=== PATIENT | female | born 1940 | race Caucasian/White ===

== ENCOUNTER 2019-07-26 10:40 | Inpatient (IN) | payer BC ==
--- NOTE | 2019-07-26 10:51 | PDOC ---
History of Present Illness - General Chief Complaint: Shortness of Breath Stated Complaint: SOB Time Seen by Provider: 07/26/19 10:51 - History of Present Illness Initial Comments: 07/26/19 11:29 pt presents to the ED complaining of a one week history of shortness of breath. Patient was seen in urgent care at the beginning of the week, had CXR and was diagnosed with PNA. Sent home with prednisone and zithromax. Presents today because symptoms are not improving. States that she feels SOB with HOOPER and orthopnea and continues to have productive cough. Denies fever, nausea or vomiting. Has completed both the z pack and the course of prednisone. Past History - Past Medical History Allergies/Adverse Reactions: Allergies Allergy/AdvReac Type Severity Reaction Status Date / Time erythromycin lactobionate Allergy Verified 07/26/19 10:41 [From Erythrocin] iodine Allergy Verified 07/26/19 10:41 ramipril [From Altace] Allergy Verified 07/26/19 10:41 Home Medications: Ambulatory Orders Diltiazem HCl [Cardizem LA] 240 mg PO DAILY 10/27/14 Furosemide [Lasix -] 40 mg PO DAILY 10/27/14 Hydralazine HCl 50 mg PO TID 10/27/14 Lansoprazole [Prevacid -] 30 mg PO DAILY 10/27/14 Levothyroxine [Synthroid -] 150 mcg PO DAILY 10/27/14 Rosuvastatin Calcium [Crestor] 10 mg PO TID 10/27/14 Albuterol 0.083% Nebulizer Shala [Ventolin 0.083% Nebulizer Soln -] 1 neb NEB Q4H PRN #0 vial 10/31/14 Roflumilast [Daliresp] 500 mcg PO DAILY #60 tablet 10/31/14 predniSONE [Deltasone -] 40 mg PO DAILY tablet 10/31/14 Aspirin [ASA -] 81 mg PO DAILY 07/26/19 Cholecalciferol (Vitamin D3) [Vitamin D3 -] 400 unit PO DAILY 07/26/19 Promethazine HCl [Phenergan Plain 6.25 MG/5 ML -] 6.25 mg PO PRN PRN 07/26/19 Telmisartan/Hydrochlorothiazid [Telmisartan-Hctz 80-12.5 mg Tb] 1 each PO DAILY 07/26/19 Asthma: Yes CHF: Yes HTN: Yes Hypercholesterolemia: Yes Thyroid Disease: Yes (hypothyroid) - Psycho Social/Smoking Cessation Hx Smoking History: Former smoker Review of Systems - Review of Systems Able to Perform ROS?: Yes Is the patient limited Maori proficient: No Constitutional: No: Symptoms Reported, See HPI, Chills, Diaphoresis, Fever, Loss of Appetite, Malaise, Night Sweats, Weakness, Weight Stable, Unintentional Wgt. Loss, Unexplained wgt Loss, Other HEENTM: No: Symptoms Reported, See HPI, Eye Pain, Blurred Vision, Tearing, Recent change in vision, Double Vision, Cataracts, Ear Pain, Ocular Prothesis, Ear Discharge, Nose Pain, Nose Congestion, Tinnitus, Nose Bleeding, Hearing Loss , Throat Pain, Throat Swelling, Mouth Pain, Dental Problems, Difficulty Swallowing, Mouth Swelling, Other Respiratory: Yes: Cough, Orthopnea, Shortness of Breath, SOB with Exertion, Wheezing, Productive cough Cardiac (ROS): No: Symptoms Reported, See HPI, Chest Pain, Edema, Irregular Heart Rate, Lightheadedness, Palpitations, Syncope, Chest Tightness, Other ABD/GI: No: Symptoms Reported, See HPI, Abdominal Distended, Abd. Pain w/ defecation, Blood Streaked Bowels, Constipated, Diarrhea, Difficulty Swallowing , Nausea, Poor Appetite, Poor Fluid Intake, Rectal Bleeding, Vomiting, Indigestion, Abdominal cramping, Tarry Stools, Other : No: Symptoms Reported, See HPI, Burning, Dysuria, Discharge, Frequency, Flank Pain, Hematuria, Incontinence, Pain, Urgency, Testicular Mass, Testicular Swelling, Lesions, Testicular Pain, Other Musculoskeletal: No: Symptoms Reported, See HPI, Back Pain, Gout, Joint Pain, Joint Swelling, Muscle Pain, Muscle Weakness, Neck Pain, Joint Stiffness, Other Integumentary: No: Symptoms Reported, See HPI, Bruising, Change in Color, Change in Hair/Nails, Dryness, Erythema, Flushing, Lesions, Lumps, Pallor, Pruritus, Rash, Sweating, Other Neurological: No: Symptoms reported, See HPI, Headache, Numbness, Paresthesia, Pre-Existing Deficit, Seizure, Tingling, Tremors, Weakness, Unsteady Gait, Ataxia, Dizziness, Other All Other Systems: Reviewed and Negative *Physical Exam - Physical Exam 07/26/19 11:38 gen: alert, NAD HEENT: normocephalic, atraumatic CV: rrr no m/r/g Pulm: + diffuse wheezing with good air entry b/l Abd: soft, non tender, non distended without guarding or rebound ext: no edema ED Treatment Course - LABORATORY CBC & Chemistry Diagram: 07/26/19 12:01 07/26/19 12:01 Medical Decision Making - Medical Decision Making 07/26/19 11:39 Pt presents to the ED complaining of wheezing, shortness of breath and productive cough after completing a course of prednisone and zithromax. Appears mildly short of breath in the ED, with diffuse wheezing. Differential includes COPD exacerbation, PNA, less likely CHF. EKG shows no evidence of ischemia. Will check labs and CXR, treat with nebs and steroids and reassess. Discharge - Discharge Information Problems reviewed: Yes Clinical Impression/Diagnosis: COPD exacerbation Condition: Good - Admission Yes - Follow up/Referral - Patient Discharge Instructions - Post Discharge Activity
[2019-07-26] MEDS ORDERED: predniSONE 20 MG TABLET (UD) PO ONE (11:16)
[2019-07-26] MEDS ORDERED: predniSONE 20 MG TABLET (UD) ONE (11:31)
[2019-07-26] MEDS ORDERED: ALBUTEROL SO4 2.5/IPRATROPIUM 0.5 INH SOL 3 ML VIAL.NEB. NEB ONE ×2 (11:31→11:42)
[2019-07-26] MEDS: ALBUTEROL SO4 2.5/IPRATROPIUM 0.5 INH SOL 3 ML VIAL.NEB. NEB SCH ×3 (11:35→12:06)
[2019-07-26 12:15] LABS: HEMATOCRIT 37.8 % (32.4-45.2); HEMOGLOBIN 12.7 GM/dl (10.7-15.3); RDW 13.1 % (11.6-15.6)
[2019-07-26 12:18] LABS: MCH 29.5 pg (25.7-33.7); MCHC 33.7 g/dl (32.0-36.0); MEAN CELL VOLUME 87.6 fl (80-96); MEAN PLT VOLUME 9.3 fl (7.5-11.1); PLATELET COUNT 282 K/MM3 (134-434); RBC 4.32 M/mm3 (3.60-5.2); WHITE BLOOD COUNT 11.3 K/mm3 (4.0-10.8)
[2019-07-26 12:24] LABS: ALBUMIN 3.7 g/dl (3.4-5.0); BILIRUBIN,TOTAL 0.5 mg/dl (0.2-1); CALCIUM 8.8 mg/dl (8.5-10); CREATININE 1.1 mg/dl (0.55-1.3); POTASSIUM 3.2 mmol/L (3.5-5.1); TOT PROT 7.4 g/dl (6.4-8.2)
[2019-07-26 13:08] LABS: PLATELET ESTIMATE ADEQUATE
--- NOTE | 2019-07-26 14:35 | EKG ---
Test Reason : Blood Pressure : / mmHG Vent. Rate : 073 BPM Atrial Rate : 073 BPM P-R Int : 134 ms QRS Dur : 094 ms QT Int : 398 ms P-R-T Axes : 049 003 010 degrees QTc Int : 438 ms NORMAL SINUS RHYTHM POSSIBLE LEFT ATRIAL ENLARGEMENT BORDERLINE ECG Confirmed by MD OC, ILAN ([id number]) on 07/26/2019 2:35:08 PM Referred By: ROMULO DE LA PAZ Confirmed By:ILAN RENAE MD
--- NOTE | 2019-07-26 15:55 | HP ---
CHIEF COMPLAINT: Shortness of breath HISTORY OF PRESENT ILLNESS: 79 year-old female with a PMH significant for HTN, HLD, CHF, COPD, and hypothyroidism. Presented to the ED complaining of a one week history of shortness of breath. 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 Last Sunday she went to work. 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 Patient immediately felt tightness in her chest. A few days later she went to urgent care, had a CXR, and was told she had pneumonia. She was treated with a course of azithromycin and prednisone. She did not really improve which prompted her to come to the ED. She feels SOB, has HOOPER, orthopnea , and has a productive cough. She denies fever, sweats, chills. ER course was notable for: (1) WBC 11.3 (2) K3.2 (3) CXR: no acute findings Recent Travel: No PAST MEDICAL HISTORY: Hypertension Hyperlipidemia CHF COPD Hypothyroidism PAST SURGICAL HISTORY: Social History: lives with Smoking: former Alcohol: occasional Drugs: no Allergies erythromycin lactobionate [From Erythrocin] Allergy (Verified 07/26/19 10:41) iodine Allergy (Verified 07/26/19 10:41) ramipril [From Altace] Allergy (Verified 07/26/19 10:41) HOME MEDICATIONS: Home Medications Medication Instructions Recorded Diltiazem HCl [Cardizem LA] 240 mg PO DAILY 10/27/14 Furosemide [Lasix -] 40 mg PO DAILY 10/27/14 Hydralazine HCl 50 mg PO TID 10/27/14 Lansoprazole [Prevacid -] 30 mg PO DAILY 10/27/14 Levothyroxine [Synthroid -] 150 mcg PO DAILY 10/27/14 Rosuvastatin Calcium [Crestor] 10 mg PO TID 10/27/14 Albuterol 0.083% Nebulizer Shala 1 neb NEB Q4H PRN #0 vial 10/31/14 [Ventolin 0.083% Nebulizer Soln -] Roflumilast [Daliresp] 500 mcg PO DAILY #60 tablet 10/31/14 predniSONE [Deltasone -] 40 mg PO DAILY tablet 10/31/14 Aspirin [ASA -] 81 mg PO DAILY 07/26/19 Cholecalciferol (Vitamin D3) 400 unit PO DAILY 07/26/19 [Vitamin D3 -] Promethazine HCl [Phenergan Plain 6.25 mg PO PRN PRN 07/26/19 6.25 MG/5 ML -] Telmisartan/Hydrochlorothiazid 1 each PO DAILY 07/26/19 [Telmisartan-Hctz 80-12.5 mg Tb] REVIEW OF SYSTEMS CONSTITUTIONAL: Absent: fever, chills, diaphoresis, generalized weakness, malaise, loss of appetite, weight change HEENT: Absent: rhinorrhea, nasal congestion, throat pain, throat swelling, difficulty swallowing, mouth swelling, ear pain, eye pain, visual changes CARDIOVASCULAR: Absent: chest pain, syncope, palpitations, irregular heart rate, lightheadedness , peripheral edema RESPIRATORY: +SOB, HOOPER, cough, orthopnea Absent: wheezing, stridor, hemoptysis GASTROINTESTINAL: Absent: abdominal pain, abdominal distension, nausea, vomiting, diarrhea, constipation, melena, hematochezia GENITOURINARY: Absent: dysuria, frequency, urgency, hesitancy, hematuria, flank pain, genital pain MUSCULOSKELETAL: Absent: myalgia, arthralgia, joint swelling, back pain, neck pain SKIN: Absent: rash, itching, pallor HEMATOLOGIC/IMMUNOLOGIC: Absent: easy bleeding, easy bruising, lymphadenopathy, frequent infections ENDOCRINE: Absent: unexplained weight gain, unexplained weight loss, heat intolerance, cold intolerance NEUROLOGIC: Absent: headache, focal weakness or paresthesias, dizziness, unsteady gait, seizure, mental status changes, bladder or bowel incontinence PSYCHIATRIC: Absent: anxiety, depression, suicidal or homicidal ideation, hallucinations. PHYSICAL EXAMINATION Vital Signs - 24 hr 07/26/19 07/26/19 10:40 14:53 Temperature 98.5 F Pulse Rate 77 Pulse Rate [ 75 Right] Respiratory 20 20 Rate Blood Pressure 148/72 Blood Pressure 140/52 L [Left Arm] O2 Sat by Pulse 92 L 92 L Oximetry (%) GENERAL: Awake, alert, and fully oriented, in no acute distress. HEAD: Normal with no signs of trauma. EYES: Pupils equal, round and reactive to light, extraocular movements intact, sclera anicteric, conjunctiva clear. No lid lag. LUNGS: Diffuse wheezing HEART: Regular rate and rhythm, normal S1 and S2 ABDOMEN: Soft, nontender, not distended UPPER EXTREMITIES: 2+ pulses, warm, well-perfused. No cyanosis. No clubbing. No peripheral edema. LOWER EXTREMITIES: 2+ pulses, warm, well-perfused. No calf tenderness. No peripheral edema. NEUROLOGICAL: Cranial nerves II-XII intact. Normal speech. Laboratory Results - last 24 hr 07/26/19 07/26/19 07/26/19 12:01 12:01 12:01 WBC 11.3 H RBC 4.32 Hgb 12.7 Hct 37.8 MCV 87.6 MCH 29.5 MCHC 33.7 RDW 13.1 Plt Count 282 MPV 9.3 Absolute Neuts (auto) 7.5 Neutrophils % No Result Required. Neutrophils % (Manual) 65.0 Lymphocytes % No Result Required. Lymphocytes % (Manual) 24.0 Monocytes % (Manual) 11 H Platelet Estimate Adequate Sodium 134 L Potassium 3.2 L Chloride 101 Carbon Dioxide 25 Anion Gap 8 BUN 29.0 H Creatinine 1.1 Est GFR (CKD-EPI)AfAm 56.08 Est GFR (CKD-EPI)NonAf 48.39 Random Glucose 102 Calcium 8.8 Total Bilirubin 0.5 AST 22 ALT 18 Alkaline Phosphatase 90 Creatine Kinase 102 Troponin I < 0.03 Total Protein 7.4 Albumin 3.7 ASSESSMENT/PLAN: 79 year-old female with a PMH significant for HTN, HLD, CHF, COPD, and hypothyroidism. Admitted for COPD exacerbation and likely pneumonitis. Acute exacerbation of chronic COPD Pneumonitis --acute onset of symptoms following chemical exposure at work, no significant improvement of symptoms after completing course of antibiotics --start PO prednisone 60mg daily --duonebs scheduled and PRN --continue roflumilast Hypertension --continue valsartan and HCTZ Hyperlipidemia --continue Crestor Diastolic heart failure --2014 Echo: EF normal, impaired LV relaxation --appears euvolemic --continue cardizem, ASA, Lasix Hypothyroidism --continue levothyroxine FEN Fluids: PO intake adequate Electrolytes: replete as indicated Nutrition: low sodium DVT prophylaxis: subq heparin Physical therapy Dispo: continues to require inpatient care. Full code. Visit type - Emergency Visit Emergency Visit: Yes ED Registration Date: 07/26/19 Care time: The patient presented to the Emergency Department on the above date and was hospitalized for further evaluation of their emergent condition. - New Patient This patient is new to me today: Yes Date on this admission: 08/04/19 - Critical Care Critical Care patient: No
[2019-07-26 16:05] VITALS: BMI 43.7
[2019-07-26] MEDS: hydrALAZINE HCL 50 MG TABLET (FP) PO SCH ×2 (17:18→21:53)
[2019-07-26] MEDS: HEPARIN NA (PORCINE) 5,000 UNITS/ML 1ML VIAL SQ SCH (17:18)
[2019-07-26] MEDS: ROFLUMILAST 500 MCG TABLET PO SCH (17:21)
[2019-07-26] MEDS: POTASSIUM CHLORIDE TABS 20 MEQ TABLET.ER (FP) PO SCH (18:40)
[2019-07-27] MEDS: POTASSIUM CHLORIDE TABS 20 MEQ TABLET.ER (FP) PO SCH (00:45)
[2019-07-27] MEDS: HEPARIN NA (PORCINE) 5,000 UNITS/ML 1ML VIAL SQ SCH ×3 (02:42→17:00)
[2019-07-27] MEDS: hydrALAZINE HCL 50 MG TABLET (FP) PO SCH ×3 (06:32→21:02)
[2019-07-27] MEDS: LEVOTHYROXINE NA 150 MCG TABLET PO SCH (06:32)
[2019-07-27] MEDS ORDERED: LEVOTHYROXINE NA 125 MCG TABLET (FP) PO SCH (07:00)
[2019-07-27 08:59] LABS: BASO % 0.2 % (0-2.0); HEMATOCRIT 34.5 % (32.4-45.2); HEMOGLOBIN 11.6 GM/dl (10.7-15.3); LYMPH % 17.8 % (8-40); MCH 29.9 pg (25.7-33.7); MCHC 33.8 g/dl (32.0-36.0); MEAN CELL VOLUME 88.5 fl (80-96); MEAN PLT VOLUME 9.8 fl (7.5-11.1); MONO % 8.4 % (3.8-10.2); NEUT % 73.6 % (42.8-82.8); PLATELET COUNT 223 K/MM3 (134-434); RDW 13.4 % (11.6-15.6); WHITE BLOOD COUNT 9.5 K/mm3 (4.0-10.8)
[2019-07-27 09:16] LABS: ALBUMIN 3.2 g/dl (3.4-5.0); BILIRUBIN,TOTAL 0.4 mg/dl (0.2-1); CALCIUM 8.8 mg/dl (8.5-10); TOT PROT 6.5 g/dl (6.4-8.2)
[2019-07-27] MEDS ORDERED: PATIENT'S OWN MEDICATION (NON-FORMULARY) (Telmisartan/Hydrochlorothiazid [Telmisartan-Hctz PO SCH (10:00)
[2019-07-27] MEDS: VALSARTAN 160 MG TABLET (UD) PO SCH (10:00)
[2019-07-27] MEDS: ROFLUMILAST 500 MCG TABLET PO SCH (10:03)
[2019-07-27] MEDS: FUROSEMIDE 40 MG TABLET (FP) PO SCH (10:03)
[2019-07-27] MEDS: PANTOPRAZOLE 40 MG TABLET PO SCH (10:03)
[2019-07-27] MEDS: predniSONE 20 MG TABLET (UD) PO SCH (10:04)
[2019-07-27] MEDS: ASPIRIN 81 MG CHEWABLE TABLETS PO SCH (10:04)
[2019-07-27] MEDS: HYDROCHLOROTHIAZIDE 12.5 MG CAPSULE (FP) PO SCH (10:08)
--- NOTE | 2019-07-27 10:55 | PN ---
Physical Exam: SUBJECTIVE: Patient seen and examined at bedside. Feels breathing is a little better. OBJECTIVE: Vital Signs Period Temp Pulse Resp BP Sys/Laws Pulse Ox Last 24 Hr 97.6 F-98.4 F 69-82 18-20 131-150/43-70 92-95 GENERAL: Awake, alert, and fully oriented, in no acute distress. HEAD: Normal with no signs of trauma. EYES: Pupils equal, round and reactive to light, extraocular movements intact, sclera anicteric, conjunctiva clear. No lid lag. LUNGS: Scattered wheezing, improved HEART: Regular rate and rhythm, normal S1 and S2 ABDOMEN: Soft, nontender, not distended UPPER EXTREMITIES: 2+ pulses, warm, well-perfused. No cyanosis. No clubbing. No peripheral edema. LOWER EXTREMITIES: 2+ pulses, warm, well-perfused. No calf tenderness. No peripheral edema. NEUROLOGICAL: Cranial nerves II-XII intact. Normal speech. Laboratory Results - last 24 hr 07/26/19 07/26/19 07/26/19 12:01 12:01 12:01 WBC 11.3 H RBC 4.32 Hgb 12.7 Hct 37.8 MCV 87.6 MCH 29.5 MCHC 33.7 RDW 13.1 Plt Count 282 MPV 9.3 Absolute Neuts (auto) 7.5 Neutrophils % No Result Required. Neutrophils % (Manual) 65.0 Lymphocytes % No Result Required. Lymphocytes % (Manual) 24.0 Monocytes % Monocytes % (Manual) 11 H Eosinophils % Basophils % Platelet Estimate Adequate Sodium 134 L Potassium 3.2 L Chloride 101 Carbon Dioxide 25 Anion Gap 8 BUN 29.0 H Creatinine 1.1 Est GFR (CKD-EPI)AfAm 56.08 Est GFR (CKD-EPI)NonAf 48.39 Random Glucose 102 Calcium 8.8 Magnesium Total Bilirubin 0.5 AST 22 ALT 18 Alkaline Phosphatase 90 Creatine Kinase 102 Troponin I < 0.03 Total Protein 7.4 Albumin 3.7 07/27/19 07/27/19 06:00 06:00 WBC 9.5 RBC 3.90 Hgb 11.6 Hct 34.5 MCV 88.5 MCH 29.9 MCHC 33.8 RDW 13.4 Plt Count 223 MPV 9.8 Absolute Neuts (auto) 7.0 Neutrophils % 73.6 Neutrophils % (Manual) Lymphocytes % 17.8 Lymphocytes % (Manual) Monocytes % 8.4 Monocytes % (Manual) Eosinophils % 0.0 Basophils % 0.2 Platelet Estimate Sodium 138 Potassium 5.0 Chloride 103 Carbon Dioxide 25 Anion Gap 10 BUN 27.0 H Creatinine 1.0 Est GFR (CKD-EPI)AfAm 62.93 Est GFR (CKD-EPI)NonAf 54.30 Random Glucose 109 H Calcium 8.8 Magnesium 2.0 Total Bilirubin 0.4 AST 16 ALT 15 Alkaline Phosphatase 80 D Creatine Kinase Troponin I Total Protein 6.5 Albumin 3.2 L Active Medications Generic Name Dose Route Start Last Admin Trade Name Freq PRN Reason Stop Dose Admin Aspirin 81 mg 07/27/19 10:00 07/27/19 10:04 Asa - PO 81 mg DAILY HIRA Administration Diltiazem HCl 240 mg 07/27/19 10:00 07/27/19 10:03 Cardizem Cd - PO 240 mg DAILY HIRA Administration Furosemide 40 mg 07/27/19 10:00 07/27/19 10:03 Lasix - PO 40 mg DAILY HIRA Administration Heparin Sodium (Porcine) 5,000 unit 07/26/19 18:00 07/27/19 10:03 Heparin - SQ 5,000 unit Q8H-IV HIRA Administration Hydralazine HCl 50 mg 07/26/19 16:46 07/27/19 06:32 Apresoline - PO 50 mg TID HIRA Administration Hydrochlorothiazide 12.5 mg 07/27/19 10:00 07/27/19 10:08 Hctz - PO 12.5 mg DAILY HIRA Administration Levothyroxine Sodium 150 mcg 07/27/19 07:00 07/27/19 06:32 Synthroid - PO 150 mcg AM HIRA Administration Pantoprazole Sodium 40 mg 07/27/19 10:00 07/27/19 10:03 Protonix - PO 40 mg DAILY HIRA Administration Prednisone 60 mg 07/27/19 10:00 07/27/19 10:04 Deltasone - PO 60 mg DAILY HIRA Administration Roflumilast 500 mcg 07/26/19 17:00 07/27/19 10:03 Daliresp PO 500 mcg DAILY HIRA Administration Rosuvastatin Calcium 10 mg 07/27/19 22:00 Crestor - PO HS HIRA Valsartan 320 mg 07/27/19 10:00 07/27/19 10:00 Diovan - PO 320 mg DAILY HIRA Administration ASSESSMENT/PLAN: 79 year-old female with a PMH significant for HTN, HLD, CHF, COPD, and hypothyroidism. Admitted for COPD exacerbation and likely pneumonitis. Acute exacerbation of chronic COPD Pneumonitis --acute onset of symptoms following chemical exposure at work, no significant improvement of symptoms after completing course of antibiotics --continue PO prednisone 60mg daily --duonebs scheduled and PRN --continue roflumilast Hypertension --continue valsartan and HCTZ Hyperlipidemia --continue Crestor Diastolic heart failure --2014 Echo: EF normal, impaired LV relaxation --appears euvolemic --continue cardizem, ASA, Lasix Hypothyroidism --continue levothyroxine FEN Fluids: PO intake adequate Electrolytes: replete as indicated Nutrition: low sodium DVT prophylaxis: subq heparin Physical therapy Dispo: continues to require inpatient care. Full code. Visit type - Emergency Visit Emergency Visit: Yes ED Registration Date: 07/26/19 Care time: The patient presented to the Emergency Department on the above date and was hospitalized for further evaluation of their emergent condition. - New Patient This patient is new to me today: No - Critical Care Critical Care patient: No
[2019-07-27] MEDS: ALBUTEROL SO4 2.5/IPRATROPIUM 0.5 INH SOL 3 ML VIAL.NEB. NEB SCH (19:42)
[2019-07-27] MEDS: ROSUVASTATIN CA 10 MG TABLET (FP) PO SCH (21:02)
[2019-07-28] MEDS: HEPARIN NA (PORCINE) 5,000 UNITS/ML 1ML VIAL SQ SCH ×3 (01:35→18:05)
[2019-07-28] MEDS: LEVOTHYROXINE NA 150 MCG TABLET PO SCH (06:40)
[2019-07-28] MEDS: hydrALAZINE HCL 50 MG TABLET (FP) PO SCH ×3 (06:40→21:15)
[2019-07-28] MEDS: ALBUTEROL SO4 2.5/IPRATROPIUM 0.5 INH SOL 3 ML VIAL.NEB. NEB SCH ×4 (08:56→21:14)
[2019-07-28] MEDS: VALSARTAN 160 MG TABLET (UD) PO SCH (09:19)
[2019-07-28] MEDS: HYDROCHLOROTHIAZIDE 12.5 MG CAPSULE (FP) PO SCH (09:19)
[2019-07-28] MEDS: predniSONE 20 MG TABLET (UD) PO SCH (09:19)
[2019-07-28] MEDS: ASPIRIN 81 MG CHEWABLE TABLETS PO SCH (09:20)
[2019-07-28] MEDS: PANTOPRAZOLE 40 MG TABLET PO SCH (09:20)
[2019-07-28] MEDS: FUROSEMIDE 40 MG TABLET (FP) PO SCH (09:20)
[2019-07-28] MEDS: ROFLUMILAST 500 MCG TABLET PO SCH (09:20)
[2019-07-28] MEDS: ROSUVASTATIN CA 10 MG TABLET (FP) PO SCH (21:15)
[2019-07-29] MEDS: HEPARIN NA (PORCINE) 5,000 UNITS/ML 1ML VIAL SQ SCH ×2 (01:22→10:00)
[2019-07-29] MEDS: hydrALAZINE HCL 50 MG TABLET (FP) PO SCH (06:13)
[2019-07-29] MEDS: LEVOTHYROXINE NA 150 MCG TABLET PO SCH (06:13)
[2019-07-29] MEDS: ALBUTEROL SO4 2.5/IPRATROPIUM 0.5 INH SOL 3 ML VIAL.NEB. NEB SCH ×2 (08:10→12:39)
[2019-07-29] MEDS: VALSARTAN 160 MG TABLET (UD) PO SCH (10:00)
[2019-07-29] MEDS: ASPIRIN 81 MG CHEWABLE TABLETS PO SCH (10:00)
[2019-07-29] MEDS: ROFLUMILAST 500 MCG TABLET PO SCH (10:00)
[2019-07-29] MEDS: HYDROCHLOROTHIAZIDE 12.5 MG CAPSULE (FP) PO SCH (10:00)
[2019-07-29] MEDS: predniSONE 20 MG TABLET (UD) PO SCH (10:00)
[2019-07-29] MEDS: FUROSEMIDE 40 MG TABLET (FP) PO SCH (10:05)
[2019-07-29] MEDS: PANTOPRAZOLE 40 MG TABLET PO SCH (10:05)
[2019-07-29 11:05] VITALS: BP 115/44; PULSE 70; TEMP 97.7
--- NOTE | 2019-07-29 12:52 | DS ---
Physical Exam: SUBJECTIVE: Patient seen and examined. Feels ready to go home. OBJECTIVE: Vital Signs Period Temp Pulse Resp BP Sys/Laws Pulse Ox Last 24 Hr 97.5 F-98.7 F 70-86 16-18 115-166/44-61 93-96 PHYSICAL EXAM GENERAL: Awake, alert, and fully oriented, in no acute distress. HEAD: Normal with no signs of trauma. EYES: Pupils equal, round and reactive to light, extraocular movements intact, sclera anicteric, conjunctiva clear. No lid lag. LUNGS: Scattered wheezes HEART: Regular rate and rhythm, normal S1 and S2 ABDOMEN: Soft, nontender, not distended UPPER EXTREMITIES: 2+ pulses, warm, well-perfused. No cyanosis. No clubbing. No peripheral edema. LOWER EXTREMITIES: 2+ pulses, warm, well-perfused. No calf tenderness. No peripheral edema. NEUROLOGICAL: Cranial nerves II-XII intact. Normal speech. LABS CBCD WBC 9.5 K/mm3 (4.0-10.8) 07/27/19 06:00 RBC 3.90 M/mm3 (3.60-5.2) 07/27/19 06:00 Hgb 11.6 GM/dl (10.7-15.3) 07/27/19 06:00 Hct 34.5 % (32.4-45.2) 07/27/19 06:00 MCV 88.5 fl (80-96) 07/27/19 06:00 MCHC 33.8 g/dl (32.0-36.0) 07/27/19 06:00 RDW 13.4 % (11.6-15.6) 07/27/19 06:00 Plt Count 223 K/MM3 (134-434) 07/27/19 06:00 MPV 9.8 fl (7.5-11.1) 07/27/19 06:00 CMP Sodium 138 mmol/L (136-145) 07/27/19 06:00 Potassium 5.0 mmol/L (3.5-5.1) 07/27/19 06:00 Chloride 103 mmol/L (98-107) 07/27/19 06:00 Carbon Dioxide 25 mmol/L (21-32) 07/27/19 06:00 Anion Gap 10 MMOL/L (8-16) 07/27/19 06:00 BUN 27.0 mg/dl (7-18) H 07/27/19 06:00 Creatinine 1.0 mg/dl (0.55-1.3) 07/27/19 06:00 Calcium 8.8 mg/dl (8.5-10) 07/27/19 06:00 Total Bilirubin 0.4 mg/dl (0.2-1) 07/27/19 06:00 AST 16 U/L (15-37) 07/27/19 06:00 ALT 15 U/L (13-61) 07/27/19 06:00 Alkaline Phosphatase 80 U/L (45-117) D 07/27/19 06:00 Total Protein 6.5 g/dl (6.4-8.2) 07/27/19 06:00 Albumin 3.2 g/dl (3.4-5.0) L 07/27/19 06:00 HOSPITAL COURSE: Date of Admission:07/26/19 Date of Discharge: 07/29/19 Pre hospital course 79 year-old female with a PMH significant for HTN, HLD, CHF, COPD, and hypothyroidism. Presented to the ED complaining of a one week history of shortness of breath. 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 Last Sunday she went to work. 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 Patient immediately felt tightness in her chest. A few days later she went to urgent care, had a CXR, and was told she had pneumonia. She was treated with a course of azithromycin and prednisone. She did not really improve which prompted her to come to the ED. She feels SOB, has HOOPER, orthopnea , and has a productive cough. She denies fever, sweats, chills. ER course (1) WBC 11.3 (2) K3.2 (3) CXR: no acute findings Subsequent hospital course 79 year-old female with a PMH significant for HTN, HLD, CHF, COPD, and hypothyroidism. Admitted for COPD exacerbation and likely pneumonitis. Acute exacerbation of chronic COPD Pneumonitis --acute onset of symptoms following chemical exposure at work, no significant improvement of symptoms after completing course of antibiotics --treated with PO prednisone, discharged on taper --treated with duonebs scheduled and PRN, and continued roflumilast Hypertension --continued valsartan and HCTZ Hyperlipidemia --continued Crestor Diastolic heart failure --2014 Echo: EF normal, impaired LV relaxation --euvolemic --continued cardizem, ASA, Lasix Hypothyroidism --continued levothyroxine Minutes to complete discharge: 35 Discharge Summary Problems reviewed: Yes Reason For Visit: ACUTE EXABERTATION OF CHRONIC OBST.PULMONARY DISEA Current Active Problems COPD exacerbation (Acute) Condition: Improved - Instructions Diet, Activity, Other Instructions: It is recommended you follow up with your primary care provider within 1 week of your discharge. The following prescriptions have been sent to your pharmacy: 1. Breo inhaler 2. Prednisone 3. Levothyroxine/Synthroid 4. Prevacid Return to the emergency department for any new or worsening symptoms. Disposition: HOME - Home Medications Comprehensive Discharge Medication List: Ambulatory Orders Diltiazem HCl [Cardizem LA] 240 mg PO DAILY 10/27/14 Furosemide [Lasix -] 40 mg PO DAILY 10/27/14 Hydralazine HCl 50 mg PO TID 10/27/14 Lansoprazole [Prevacid -] 30 mg PO DAILY 10/27/14 Levothyroxine [Synthroid -] 150 mcg PO DAILY 10/27/14 Rosuvastatin Calcium [Crestor] 10 mg PO TID 10/27/14 Albuterol 0.083% Nebulizer Shala [Ventolin 0.083% Nebulizer Soln -] 1 neb NEB Q4H PRN #0 vial 10/31/14 Roflumilast [Daliresp] 500 mcg PO DAILY #60 tablet 10/31/14 predniSONE [Deltasone -] 40 mg PO DAILY tablet 10/31/14 Aspirin [ASA -] 81 mg PO DAILY 07/26/19 Cholecalciferol (Vitamin D3) [Vitamin D3 -] 400 unit PO DAILY 07/26/19 Promethazine HCl [Phenergan Plain 6.25 MG/5 ML -] 6.25 mg PO PRN PRN 07/26/19 Telmisartan/Hydrochlorothiazid [Telmisartan-Hctz 80-12.5 mg Tb] 1 each PO DAILY 07/26/19 This patient is new to me today: No Emergency Visit: Yes ED Registration Date: 07/26/19 Care time: The patient presented to the Emergency Department on the above date and was hospitalized for further evaluation of their emergent condition. Critical Care patient: No - Discharge Referral Referred to [facility] No
--- NOTE | 2019-07-29 12:52 | PN ---
Physical Exam: SUBJECTIVE: Patient seen and examined at bedside. Feels better than on admission , still wheezing. OBJECTIVE: Vital Signs Period Temp Pulse Resp BP Sys/Laws Pulse Ox Last 24 Hr 97.5 F-98.7 F 70-86 16-18 115-166/44-61 93-96 GENERAL: Awake, alert, and fully oriented, in no acute distress. HEAD: Normal with no signs of trauma. EYES: Pupils equal, round and reactive to light, extraocular movements intact, sclera anicteric, conjunctiva clear. No lid lag. LUNGS: Persistent scattered wheezing HEART: Regular rate and rhythm, normal S1 and S2 ABDOMEN: Soft, nontender, not distended UPPER EXTREMITIES: 2+ pulses, warm, well-perfused. No cyanosis. No clubbing. No peripheral edema. LOWER EXTREMITIES: 2+ pulses, warm, well-perfused. No calf tenderness. No peripheral edema. NEUROLOGICAL: Cranial nerves II-XII intact. Normal speech. Active Medications Generic Name Dose Route Start Last Admin Trade Name Freq PRN Reason Stop Dose Admin Albuterol/Ipratropium 1 amp 07/27/19 20:00 07/29/19 12:39 Duoneb - NEB 1 amp RQID HIRA Administration Aspirin 81 mg 07/27/19 10:00 07/29/19 10:00 Asa - PO 81 mg DAILY HIRA Administration Diltiazem HCl 240 mg 07/27/19 10:00 07/29/19 10:00 Cardizem Cd - PO 240 mg DAILY HIRA Administration Furosemide 40 mg 07/27/19 10:00 07/29/19 10:05 Lasix - PO 40 mg DAILY HIRA Administration Heparin Sodium (Porcine) 5,000 unit 07/26/19 18:00 07/29/19 10:00 Heparin - SQ 5,000 unit Q8H-IV HIRA Administration Hydralazine HCl 50 mg 07/26/19 16:46 07/29/19 06:13 Apresoline - PO 50 mg TID HIRA Administration Hydrochlorothiazide 12.5 mg 07/27/19 10:00 07/29/19 10:00 Hctz - PO 12.5 mg DAILY HIRA Administration Levothyroxine Sodium 150 mcg 07/27/19 07:00 07/29/19 06:13 Synthroid - PO 150 mcg AM HIRA Administration Pantoprazole Sodium 40 mg 07/27/19 10:00 07/29/19 10:05 Protonix - PO 40 mg DAILY HIRA Administration Prednisone 60 mg 07/27/19 10:00 07/29/19 10:00 Deltasone - PO 60 mg DAILY HIRA Administration Roflumilast 500 mcg 07/26/19 17:00 07/29/19 10:00 Daliresp PO 500 mcg DAILY HIRA Administration Rosuvastatin Calcium 10 mg 07/27/19 22:00 07/28/19 21:15 Crestor - PO 10 mg HS HIRA Administration Valsartan 320 mg 07/27/19 10:00 07/29/19 10:00 Diovan - PO 320 mg DAILY HIRA Administration ASSESSMENT/PLAN: 79 year-old female with a PMH significant for HTN, HLD, CHF, COPD, and hypothyroidism. Admitted for COPD exacerbation and likely pneumonitis. Acute exacerbation of chronic COPD Pneumonitis --acute onset of symptoms following chemical exposure at work, no significant improvement of symptoms after completing course of antibiotics --continue PO prednisone 60mg daily --duonebs scheduled and PRN --continue roflumilast Hypertension --continue valsartan and HCTZ Hyperlipidemia --continue Crestor Diastolic heart failure --2014 Echo: EF normal, impaired LV relaxation --appears euvolemic --continue cardizem, ASA, Lasix Hypothyroidism --continue levothyroxine FEN Fluids: PO intake adequate Electrolytes: replete as indicated Nutrition: low sodium DVT prophylaxis: subq heparin Physical therapy Dispo: continues to require inpatient care. Full code. Visit type - Emergency Visit Emergency Visit: Yes ED Registration Date: 07/26/19 Care time: The patient presented to the Emergency Department on the above date and was hospitalized for further evaluation of their emergent condition. - New Patient This patient is new to me today: No - Critical Care Critical Care patient: No
== END 2019-07-29 13:53 | disposition home or self-care (01) | DRG 190 ==
LOC: FER 10:40 → FM/S 14:32
PROVIDERS: ADMIT Internal Medicine; ATTEND Nurse Practitioner Acute Care
DX: J44.1 Chronic obstructive pulmonary disease with (acute) exacerbation (principal); J18.9 Pneumonia, unspecified organism; I50.30 Unspecified diastolic (congestive) heart failure; I11.0 Hypertensive heart disease with heart failure; E78.5 Hyperlipidemia, unspecified; E03.9 Hypothyroidism, unspecified
CPT/HCPCS: 36415; 71046-TC-FY; 80053; 82550; 83735; 84484; 85025; 93005; 94640; 97116-GP; 97162-GP; 99284-25; J1644